=== PATIENT | male | born 1960 | race Caucasian/White ===

== ENCOUNTER → 2025-01-05 02:14 | Outpatient (CLI) | payer MEDICAID, SELFPAY ==
--- NOTE | 2025-01-05 09:10 | DI.MRI_ITS ---
Exam(s) MR LUMBAR SPINE WO EXAM: MR LUMBAR SPINE WO CLINICAL HISTORY: mechanical low back pain,lumbar spondylosis,m54.59,m47.816. TECHNIQUE: Multiplanar multisequence MRI of the Lumbar spine was performed. COMPARISON: CR XR HIPS BILAT MIN 2V EA from 08/01/2024 FINDINGS: Bones: The last intervertebral disc space is designated the L5/S1 level for the numbering purpose of this examination. The vertebral body heights are well maintained. Alignment is satisfactory. There are degenerative endplate signal changes seen particularly at L5-S1. There is diffuse decreased signal seen on both the T1 and T2 weighted images in the marrow throughout the visualized thoracic, lumbar spine and pelvis. Cord: It is of normal size and signal intensity. T12-L1: No disc herniations or bulges are present. No central spinal canal or neural foraminal stenosis. L1-2: No disc herniations or bulges are present. No central spinal canal or neural foraminal stenosis. L2-3: No disc herniations or bulges are present. No central spinal canal or neural foraminal stenosis. L3-4: There is a mild diffuse disc bulge. There is mild extension into the right neural foramen. No central spinal canal or neural foraminal stenosis. L4-5: No disc herniations or bulges are present. There are degenerative changes seen at the facets.There is no significant central spinal canal or neural foraminal stenosis present. L5-S1: There is a mild diffuse disc bulge. It does extend into the neural foramen, left greater than right. There are degenerative changes seen in the facets.There is no significant central spinal canal stenosis. There is mild bilateral neural foraminal stenosis, left greater than right. Soft tissues: The visualized SI joints and sacrum are well maintained. The paraspinal soft tissues are unremarkable. IMPRESSION: 1. Degenerative changes in the lumbar spine resulting in bilateral neural foraminal narrowing at L5-S1, left greater than right. 2. Diffuse decreased marrow signal on both the T1 and T2 weighted images. This can be seen with red marrow reconversion or marrow proliferative disorders. Please correlate with the patient's clinical history. DATA REPOSITORY:
== END ==
LOC: DI 02:14
PROVIDERS: PCP Family Medicine; Visit Provider Anesthesiology Pain Medicine
DX: M47.816 Spondylosis without myelopathy or radiculopathy, lumbar region (principal); M54.59 Other low back pain
CPT/HCPCS: 72148

== ENCOUNTER 2025-02-06 12:06 | Outpatient (CLI) | payer MEDICAID, SELFPAY ==
--- NOTE | 2025-02-06 06:00 | DI.RAD_ITS ---
Exam(s) XR PAIN CLINIC LUMBAR SP 2V EXAM: XR PAIN CLINIC LUMBAR SP 2V CLINICAL HISTORY: DX: Lumbar Radiculopathy. TECHNIQUE: Fluoroscopy was provided for the referring physician for guidance with performing pain clinic injection procedure. COMPARISON: No exams were available for comparison FINDINGS: Please see procedure note for details. Fluoro time: 12.1 seconds RADIATION DOSE DELIVERED: Ka,r=8.8 mGy
[2025-02-06 06:58] VITALS: BP 149/80; PULSE 72; RESP 18; TEMP 36.7; O2SAT 98
--- NOTE | 2025-02-06 12:42 | PDOC.PAIN ---
Date of service: 02/06/25 Time of Service: 12:58 Pain Managment Procedure Note Procedure Note Procedure Note: Lumbar Interlaminar Epidural Steroid Injection ? Location: L5-S1 ? Pre-procedure Diagnosis: M54.16- Radiculopathy, LUMBAR region ? Post-procedure Diagnosis:? The same as above ? Sedation:? ? None ? Medication: Depo-Medrol 80 mg, Omnipaque 1 mL ? Estimated blood loss:? less than 2 ml ? Surgeon:? Kavon Cannon MD: COMMENT: 1. Degenerative changes in the lumbar spine resulting in bilateral neural foraminal narrowing at L5-S1, left greater than right. ? Procedure Detail:? The procedure and potential risks were explained to the patient and informed written consent was obtained. The patient was escorted to the procedure room and placed in the prone position. Pillows were utilized for proper positioning and comfort. Time out was performed in the procedure room with nursing staff confirming the patient's identity, procedure to be performed, allergies, and any blood thinning or anti-platelet medications.? The patient's low back was prepped with ChloraPrep and draped in a sterile fashion. Sterile technique was maintained throughout the procedure.? Sterile gloves were used, a face mask was worn, and new single dose vials of all medications were used with the top being swabbed with alcohol and given time to dry prior to withdrawal of medication. Lidocane 1% was used to anesthetize the skin.Using a 25-gauge 1.5 inch needle, 1% lidocaine was instilled into the superficial soft tissue overlying the targeted area to provide local anesthesia. With fluoroscopic guidance, a 17 -gauge Tuohy needle was advanced toward the interlaminar space of L5-S1. The needle was then advance through the ligamentum flavum and into the posterior epidural space using the loss of resistance technique. Correct needle placement was confirmed through review of the AP and lateral fluoroscopic views. Following negative aspiration, 1 ml of Omnipaque 240 contrast was injected which confirmed good flow throughout the epidural space and no evidence of vascular flow or flow into adjacent compartments. Next, following negative aspiration, 1 ml 1% lidocaine, 1 ml of normal saline and 80mg of Depo-Medrol was injected. The needle was gently removed. The patient tolerated the procedure well and was transported to the recovery area for observation and discharge instructions. Permanent images saved and recorded. PAIN PRE-PROCEDURE POST-PROCEDURE 0 Plan:? Follow up prn. COMMENT: Patient will follow-up in needed. If this is not effective then consider medial branch blocks and radiofrequency ablation. We also discussed the finding of the marrow changes in his MRI he will follow-up with his PCP regarding further workup as deemed necessary. Coding Conscious Sedation used for procedure: No CPT Codes: Inj Spine L/S w/Imaging - 10021 ([id number] ~G) Additional Codes: Date of Service () Diagnoses: M54.16- Radiculopathy, LUMBAR region
[2025-02-06 12:45] VITALS: PULSE 82; O2SAT 94
[2025-02-06 12:50] VITALS: PULSE 66; O2SAT 95
[2025-02-06] MEDS: Omnipaque 240 MG/ML 50 ML BTL IJ (12:59)
[2025-02-06] MEDS: Epidural Tray 1 EACH MC (12:59)
[2025-02-06] MEDS: methylPREDNISolone ACETATE 40 MG/ML VIAL IJ (13:00)
== END 2025-02-06 12:07 | disposition home or self-care (01) ==
LOC: PC 12:07
PROVIDERS: PCP Family Medicine; Visit Provider Anesthesiology Pain Medicine
DX: M54.16 Radiculopathy, lumbar region (principal)
CPT/HCPCS: 62323; 72100; J1010; Q9967